=== PATIENT | female | born 1930 | race Asian ===

== ENCOUNTER 2016-06-12 16:54 | Emergency (ER) | payer MEDICARE, OTHER ==
--- NOTE | 2016-06-12 17:17 | ER Document Report ---
ED Medical Screen (RME) - General Stated Complaint: COUGH Time seen by provider: 17:17 Mode of Arrival: Wheelchair Information source: Patient Notes: 85-year-old nonsmoker, intermittent confusion female complaining of left-sided chest pain and left neck pain. She was brought from [facility]. She has a history of malignant uterine cancer, hyperlipidemia. Pt is DNR but ems did not bring the paperwork. TRAVEL OUTSIDE OF THE [place] IN LAST 30 DAYS: No - Related Data Allergies/Adverse Reactions: No Known Allergies Allergy (Unverified 03/02/11 16:03) Past Medical History - Past Medical History Cardiac Medical History: Reports: Hx Coronary Artery Disease - high cholesterol , Hx Hypercholesterolemia Denies: Hx Heart Attack, Hx Hypertension Pulmonary Medical History: Denies: Hx Asthma, Hx Bronchitis, Hx Pneumonia Neurological Medical History: Denies: Hx Cerebrovascular Accident, Hx Seizures Musculoskeltal Medical History: Reports Hx Arthritis Past Surgical History: Reports: Hx Hysterectomy. Denies: Hx Pacemaker Physical Exam - Vital signs Vitals: Temp Pulse Resp BP Pulse Ox 97.5 F 76 18 104/74 98 06/12/16 17:23 06/12/16 17:23 06/12/16 17:23 06/12/16 17:23 06/12/16 17:23 Course - Vital Signs Vital signs: Temp Pulse Resp BP Pulse Ox 97.5 F 76 18 104/74 98 06/12/16 17:23 06/12/16 17:23 06/12/16 17:23 06/12/16 17:23 06/12/16 17:23
[2016-06-12 17:29] VITALS: BP 104/74
--- NOTE | 2016-06-12 17:58 | ER Document Report ---
ED General - General Chief Complaint: chest pain, cough Stated Complaint: COUGH Time seen by provider: 17:45 Mode of Arrival: Wheelchair Information source: Patient Notes: 85-year-old female who complains about four-day history nonproductive cough and 2 day history of sharp pain to the left mid back and left neck. She reports pain is sometimes worse with movement or deep breathing. She denies fever, chills, nausea, vomiting, abdominal pain, anterior chest pain, diarrhea, dysuria , or syncope. Patient is resident [facility] in their paperwork documents DO NOT RESUSCITATE status of the outpatient DO NOT RESUSCITATE sheet did not arrive with her Physical Exam: General: Alert, appears well. HEENT: Normocephalic. Atraumatic. PERRLA. Extraocular movements intact. Oropharynx clear. Neck: Supple. Mildly tender along the left trapezius and palpation of this area reproduces patient's pain. Respiratory: No respiratory distress. Few rhonchi bilaterally breath sounds equal good aeration no accessory muscle use. Cardiovascular: Regular rate and rhythm. Abdominal: Normal Inspection. Soft, non-tender. No distension. Normal Bowel Sounds. Back: Palpation of left midback laterally over approximately ribs 7 through 9 localizes patient's complaint of back pain and chest pain Extremities: Moves all four extremities. Trace bilateral lower extremity edema no Homans sign bilaterally to posterior suspect is posterior tibial radial pulses Neurological: Speech clear moves all extremity well Psychological: Normal affect. Normal Mood. Skin: Warm. Dry. Normal color. TRAVEL OUTSIDE OF THE [place] IN LAST 30 DAYS: No - Related Data Allergies/Adverse Reactions: No Known Allergies Allergy (Unverified 03/02/11 16:03) Past Medical History - General Information source: Patient - Social History Smoking Status: Unknown if Ever Smoked Family History: None Patient has suicidal ideation: No Patient has homicidal ideation: No - Past Medical History Cardiac Medical History: Reports: Hx Coronary Artery Disease - high cholesterol , Hx Hypercholesterolemia Denies: Hx Heart Attack, Hx Hypertension Pulmonary Medical History: Denies: Hx Asthma, Hx Bronchitis, Hx Pneumonia Neurological Medical History: Denies: Hx Cerebrovascular Accident, Hx Seizures Musculoskeltal Medical History: Reports Hx Arthritis Past Surgical History: Reports: Hx Hysterectomy. Denies: Hx Pacemaker Review of Systems - Review of Systems Constitutional: See HPI EENT: denies: Ear pain, Throat pain Cardiovascular: See HPI Respiratory: See HPI Gastrointestinal: See HPI Genitourinary: denies: Burning, Dysuria Musculoskeletal: See HPI Hematologic/Lymphatic: denies: Swollen glands Neurological/Psychological: denies: Weakness, Numbness Physical Exam - Vital signs Vitals: Temp Pulse Resp BP Pulse Ox 97.5 F 76 18 104/74 98 06/12/16 17:23 06/12/16 17:23 06/12/16 17:23 06/12/16 17:23 06/12/16 17:23 Course - Re-evaluation Re-evalutation: 06/12/16 19:08 Patient showed no respiratory difficulty during her stay here. She does have mild nonproductive cough and will be placed on antibiotics for bronchitis. He is also noted to have nodules in the right base which radiologist recommended CT chest for further evaluation but this can be done as an outpatient by her primary care physician 06/12/16 19:09 I believe her chest wall discomfort and neck pain related to muscle strain from her coughing and anticipate improvement with antibiotics as well - Vital Signs Vital signs: Temp Pulse Resp BP Pulse Ox 97.5 F 76 18 104/74 98 06/12/16 17:23 06/12/16 17:23 06/12/16 17:23 06/12/16 17:23 06/12/16 17:23 - Diagnostic Test Radiology reviewed: Image reviewed, Reports reviewed - EKG Interpretation by Me Additional EKG results interpreted by me: 06/12/16 19:08 EKG reviewed by myself sinus rhythm 69 occasional PAC no acute changes Discharge - Discharge Clinical Impression: Nodule of right lung Acute bronchitis Qualifiers: Bronchitis organism: unspecified organism Qualified Code(s): J20.9 - Acute bronchitis, unspecified Condition: Stable Disposition: HOME-SNF (ED ONLY) Instructions: Chest Wall Pain ([facility]) Additional Instructions: Bronchitis You have acute bronchitis. This disease is an infection or inflammation of the air passageways in your lungs. Symptoms usually include cough, low grade fever, shortness of breath, and wheezing. The cough usually persists for a couple of weeks. Most cases of bronchitis get better without antibiotics. We prescribe antibiotics when we believe bacteria are damaging your airways, or if there's high risk the bronchitis will worsen into pneumonia. Increase your fluid intake. A cool mist humidifier may make your lungs more comfortable. An expectorant (cough medicine that loosens phlegm) can help. If you smoke, STOP!!! Recovery from bronchitis can be somewhat slow, but you should see improvement within a day or two. Repeated episodes of bronchitis may result in lung damage -- for example, chronic bronchitis, recurrent pneumonias, or emphysema. Call the doctor if you develop increasing fever, shortness of breath, chest pain, bloody sputum, or otherwise worsen. If you have not improved at all after several days, contact the physician. There is an abnormal marking on chest x-ray in your right lung which will need a CT scan of your chest for further evaluation and this can be ordered through your primary care physician Prescriptions: Azithromycin [Zithromax 250 mg Tablet] 250 mg PO ASDIR PRN #6 tablet PRN Reason: Referrals: Keny Goode [facility] MANAGER [NO LOCAL MD] - Follow up as needed
--- NOTE | 2016-06-12 23:00 | EKG REPORT ---
SEVERITY:- ABNORMAL ECG - SINUS RHTHM BORDERLINE INFERIOR Q WAVES : Confirmed by: Martine Melendez 12-Jun-2016 22:59:22
--- NOTE | 2016-06-13 08:11 | EKG REPORT ---
SEVERITY:- ABNORMAL ECG - SINUS RHYTHM MULTIPLE ATRIAL PREMATURE COMPLEXES : Confirmed on behalf of: Martine Melendez 13-Jun-2016 08:11:24
== END 2016-06-12 22:10 ==
LOC: ER 16:54
DX: R91.1 Solitary pulmonary nodule (principal); J20.9 Acute bronchitis, unspecified; R07.9 Chest pain, unspecified; M54.2 Cervicalgia; I25.10 Atherosclerotic heart disease of native coronary artery without angina pectoris; E78.00 Pure hypercholesterolemia, unspecified; Z66 Do not resuscitate; Z90.710 Acquired absence of both cervix and uterus
CPT/HCPCS: 71010; 93005; 93010; 99285

== ENCOUNTER → 2016-06-23 | Outpatient (CLI) | payer MEDICARE, OTHER | LOC: RAD 09:16 | PROVIDERS: ATTEND Nurse Practitioner Acute Care | DX: R91.8 Other nonspecific abnormal finding of lung field (principal) | CPT/HCPCS: 71260; 82565 ==

== ENCOUNTER 2016-08-17 08:52 | Day surgery (SDC) | payer MEDICARE, OTHER ==
[~2016-08-17 08:52] MED LIST: KETOROLAC TROMETHAMINE 0.45% 4 DROP/0.4 ML DROPERETTE OS PRN
[2016-08-17] MEDS ORDERED: MIDAZOLAM 2 MG/2 ML INJ ONE (09:10)
[2016-08-17] MEDS ORDERED: ONDANSETRON HCL INJ/PF 4 MG/2 ML SDV ONE (09:10)
[2016-08-17] MEDS ORDERED: FENTANYL CITRATE INJ/PF 100 MCG/2 ML AMPUL ONE (09:10)
[2016-08-17] MEDS ORDERED: PHENYLEPHRINE/KETOROLAC 1%-0.3% 4 ML VIAL ONE (09:32)
[2016-08-17] MEDS ORDERED: CHONDR SU A NA/HYALUR INTRAOC KIT (SURGICARE) ONE (09:33)
[2016-08-17] MEDS ORDERED: LIDOCAINE 1% INJ-PF (10 MG/ML) 30 ML SDV ONE (09:33)
[2016-08-17] MEDS: CYCLOPENTOLATE 0.2%/PHENYLEPHRINE 1% OPH SOLN 2 ML OS PRN ×3 (09:49→10:08)
[2016-08-17] MEDS: TETRACAINE HCL 0.5% OPH SOLN 2 ML OS PRN ×3 (09:49→10:30)
[2016-08-17] MEDS: BESIFLOXACIN HCL 0.6% OPH SUSP 5 ML BOTTLE OS PRN ×3 (09:49→11:18)
[2016-08-17] MEDS: TROPICAMIDE 1% OPH SOLN 3 ML OS PRN ×3 (09:49→10:08)
[2016-08-17] MEDS ORDERED: TRYPAN BLUE 0.06 % OPH SOLN 0.5 ML DISP.SYRIN ONE (10:46)
[2016-08-17] MEDS ORDERED: CHONDR SU A NA/HYALUR SOD 0.5 ML DISP.SYRIN ONE ×2 (11:03→11:09)
[2016-08-17] MEDS ORDERED: PROPOFOL INJ 200 MG/20 ML VIAL IV ONE (11:26)
[2016-08-17] MEDS ORDERED: LIDOCAINE 2% INJ-PF (20 MG/ML) 10 ML AMPUL ONE (11:26)
--- NOTE | 2016-08-17 18:13 | DISCHARGE SUMMARY E ---
Discharge Summary NAME: MARC CHUNG : 1930 AGE: 85Y ADMITTED: 08/17/2016 DISCHARGED: 08/17/2016 REASON FOR ADMISSION: This is an 85-year-old female who underwent cataract surgery of her left eye. DIAGNOSES: 1. Cataract, left eye. 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 HOSPITAL COURSE: She underwent surgery because she has difficulty seeing the TV or reading. She should be on a regular diet. No bending at her waist. No heavy lifting. She should use her Besivance, Ilevro, and Durezol at 3:00 p.m. and 8:00 p.m. and sleep with a rigid shield, and I will see her for a 1-day postoperative tomorrow. DICTATING PHYSICIAN: JONI WRIGHT M.D. [id number] PHY#: [id number] ID: [id number] JOB#: [id number] ACCT: [id number] cc:JONI WRIGHT M.D. >
--- NOTE | 2016-08-17 18:13 | [facility] OPERATIVE REPORT E ---
[facility] Operative Report NAME: MARC CHUNG AGE: 85Y DATE OF SURGERY: 08/17/2016 ROOM: PREOPERATIVE DIAGNOSES: 1. CATARACT, LEFT EYE. 2. PUPIL MYOSIS OF THE LEFT EYE. POSTOPERATIVE DIAGNOSES: 1. CATARACT, LEFT EYE. 2. PUPIL MYOSIS OF THE LEFT EYE. OPERATION: Complex cataract extraction with use of a Malyugin ring due to a very myotic pupil. SURGEON: JONI WRIGHT M.D. ANESTHESIA: Topical. PROCEDURE: After obtaining appropriate consent, the patient's left eye was prepped and draped in sterile fashion as well as the surgeon in a sterile manner and cataract surgery was started. First a paracentesis blade was used to make a small side-port incision. Viscoelastic was used to inflate the anterior chamber. Next a 2.4 mm incision was made with the paracentesis blade. A continuous capsulorrhexis incision was made using a cystotome and Utrata forceps. Following this hydrodissection was carried out to make the lens fully loose and mobile and it was rotated 90 degrees. Following this, a [id number] technique was used to phacoemulsify the lens with a CDE of 11.73. The remaining cortex was removed with irrigation/aspiration. Provisc was instilled into the capsular bag to inflate the bag. A SN60WF, 19.0 diopter lens was placed. The remaining viscoelastic material was removed with irrigation/aspiration. Following this, a 10-0 nylon suture was used to close the incision and it was found to be watertight. Vigamox was instilled in the eye and a protective shield was placed over the eye. The patient returned to the postoperative recovery in stable condition. ADDENDUM: Prior to making the capsulorhexis, a Malyugin ring was inserted due to a very myotic pupil. This was removed at the end of the case. DICTATING PHYSICIAN: JONI WRIGHT M.D. [id number] PHY#: [id number] ID: [id number] JOB#: [id number] ACCT: [id number] cc:JONI WRIGHT M.D. >
== END 2016-08-17 12:02 | disposition home health service (06) ==
LOC: SC 08:52
PROVIDERS: ATTEND Internal Medicine
PROC: 08RK3JZ Replacement of Left Lens with Synthetic Substitute, Percutaneous Approach (ICD-10-PCS; principal; 2016-08-17 10:30)
DX: H25.812 Combined forms of age-related cataract, left eye (principal); H57.03 Miosis; Z79.82 Long term (current) use of aspirin; Z79.899 Other long term (current) drug therapy
CPT/HCPCS: 66982; V2632; J2250; J3490 ×5; A9270; J3010; J2405; J2704; C9447; 142

== ENCOUNTER → 2017-03-27 | Outpatient (CLI) | payer MEDICARE, OTHER ==
--- NOTE | 2017-03-28 09:17 | RADIOLOGY REPORT (SQ) ---
EXAM DESCRIPTION: PET CT LIMITED COMPLETED DATE/TIME: 03/27/2017 6:24 pm REASON FOR STUDY: LUNG MASS R91.8 OTHER NONSPECIFIC ABNORMAL FINDING OF LUNG FIELD COMPARISON: CT abdomen and pelvis 02/04/2009 CT right hip 12/08/2014 CT chest 07/01/2016 RADIONUCLIDE AND DOSE: 9.7 mCi F18 FDG The route of agent administration: Intravenous FASTING BLOOD SUGAR: 80 mg/dl CONTRAST TYPE AND DOSE: No CT contrast given. TECHNIQUE: Blood glucose level was verified. Above dose of FDG was injected intravenously. 2-D seg mented attenuation correction images were obtained from the base of the skull to the midthighs. Nonc ontrast CT images were obtained for attenuation correction and fusion with emission images. CT image s were performed without oral or intravenous contrast and are not sensitive for parenchymal lesions. A series of overlapping emission PET images were obtained. Images reviewed and manipulated at [facility] work station by the radiologist. Images stored on PACS. LIMITATIONS: None. FINDINGS: HEAD AND NECK: No areas of abnormal metabolic activity in the soft tissues of the head and neck. CHEST: No areas of abnormal metabolic activity in the chest. There is a 10 x 8 mm spiculated nodule in the anterior left upper lobe on axial image 68, unchanged i n size compared to 06/23/2016. No increased metabolic activity. SUV 1.8, less than blood pool activi ty. In the medial aspect left upper lobe, on axial image 74, 2.7 x 2.6 cm area of dense consolidation ve rsus mass is seen with adjacent bronchiectasis. This has SUV of 2.3 which is barely above blood pool activity. This area measures 3 x 2.7 cm on 06/23/2016. Non metabolic 10 mm AP window lymph node axial image 71. Non metabolic 1.9 x 1.6 cm precarinal calcified lymph node axial image 74. ABDOMEN AND PELVIS: No areas of abnormal metabolic activity in the abdomen or pelvis. Expected physi ologic activity is present in the genitourinary system and bowel. PROXIMAL LOWER EXTREMITIES: No areas of abnormal metabolic activity in the soft tissues of the lower extremities. BONES: No abnormal metabolic activity in the visualized skeleton. ADDITIONAL CT FINDINGS: Calcified gallstones. Calcified coronary arteries and aortic valve. Multipl e calcific right pleural plaques without pleural effusion. 1 cm right midpole renal cortical cyst. Post hysterectomy and appendectomy OTHER: Liver background activity 3 SUV. Blood pool background activity 2.1 SUV. IMPRESSION: 10 x 8 mm spiculated nodule anterior left upper lobe is not significantly metabolically active. SUV is less than blood pool background activity. Consider periodic surveillance with repeat noncontrast chest CT in June 2017 to exclude growth or change. 2.7 x 2.6 cm area of masslike consolidation in the medial left upper lobe with adjacent bronchiectasi s. SUV is barely higher than blood pool background activity. Consider periodic surveillance with re peat noncontrast chest CT in June 2017 to exclude growth or change TECHNICAL DOCUMENTATION: JOB ID: [id number] [employer]- All Rights Reserved
== END ==
LOC: RAD 16:14
PROVIDERS: ATTEND Internal Medicine Pulmonary Disease
DX: R91.8 Other nonspecific abnormal finding of lung field (principal); J98.4 Other disorders of lung
CPT/HCPCS: 78814; A9552

== ENCOUNTER → 2017-07-06 | Outpatient (CLI) | payer MEDICARE, OTHER ==
--- NOTE | 2017-07-06 15:44 | RADIOLOGY REPORT (SQ) ---
EXAM DESCRIPTION: CT CHEST WITHOUT COMPLETED DATE/TIME: 07/06/2017 1:35 pm REASON FOR STUDY: PULMONARY MASS (R91.8) R91.8 OTHER NONSPECIFIC ABNORMAL FINDING OF LUNG FIELD COMPARISON: PET-CT dated 03/27/2017. CT chest dated 06/23/2016. TECHNIQUE: CT scan performed of the chest without intravenous contrast. Images reviewed with lung, soft tissue and bone windows. Reconstructed coronal and sagittal MPR images reviewed. All images st ored on PACS. All CT scanners at this facility use dose modulation, iterative reconstruction, and/or weight based d osing when appropriate to reduce radiation dose to as low as reasonably achievable (ALARA). [facility]: Dose Right [facility]: CareDose [facility]: Dose Right [facility]: Teradose 4D [facility]: [employer] RADIATION DOSE: CT Rad equipment meets quality standard of care and radiation dose reduction techniq ues were employed. CTDIvol: 10.7 mGy. DLP: 352 mGy-cm. mGy. LIMITATIONS: No technical limitations. FINDINGS: LUNGS AND PLEURA: 9 mm spiculated mass in the anterior left upper lobe unchanged. Nodular area of infiltrate in the medial left upper lobe, measuring 2.8 x 3.0 cm unchanged. No new nodules or masses. Calcified granulomas in the right lung. No pleural effusion. Calcified mass in the righ t posterior costophrenic angle, unchanged. HILAR AND MEDIASTINAL STRUCTURES: Small subcentimeter lymph nodes in the aorta pulmonary window uncha nged. Calcified precarinal lymph node and densely calcified subcarinal lymph node unchanged. HEART AND VASCULAR STRUCTURES: No aneurysm. No pericardial effusion. UPPER ABDOMEN: Gallstones. Left renal cyst. Limited exam. THYROID AND OTHER SOFT TISSUES: No masses. No adenopathy. BONES: No significant finding. HARDWARE: None in the chest. OTHER: No other significant findings. IMPRESSION: 1. STABLE MASSES IN THE LEFT UPPER LOBE DESCRIBED. NO CHANGE. RECOMMEND CONTINUED CT SURVEILLANC E WITH REPEAT CT IN 6 MONTHS. 2. CALCIFIED GRANULOMAS IN THE RIGHT LUNG. CALCIFIED MASS IN THE RIGHT POSTERIOR COSTOPHRENIC SULCUS UNCHANGED. CALCIFIED MEDIASTINAL LYMPH NODES UNCHANGED. 3. GALLSTONES. LEFT RENAL CYST. TECHNICAL DOCUMENTATION: JOB ID: [id number] Quality ID # [id number]: Final reports with documentation of one or more dose reduction techniques (e.g., Au tomated exposure control, adjustment of the mA and/or kV according to patient size, use of iterative reconstruction technique) 2010 [employer]- All Rights Reserved
== END ==
LOC: RAD 13:14
PROVIDERS: ATTEND Internal Medicine Pulmonary Disease
DX: R91.8 Other nonspecific abnormal finding of lung field (principal)
CPT/HCPCS: 71250